=== PATIENT | male | born 1985 | race Caucasian/White ===

== ENCOUNTER 2021-09-24 18:22 | Emergency (ER) | payer OTHER ==
[2021-09-28 21:11] LABS: CHLAMYDIA TRACHOMATIS, NAA Positive (Negative); NEISSERIA GONORRHOEAE, NAA Negative (Negative)
== END 2021-09-24 19:08 | disposition home or self-care (01) ==
LOC: ER1 18:22
PROVIDERS: Physician Assistant
DX: N48.9 Disorder of penis, unspecified (principal)
CPT/HCPCS: 99282